=== PATIENT | male | born 1980 | race Caucasian/White ===

== ENCOUNTER 2018-02-12 04:50 | Emergency (ER) | payer BC, OTHER ==
[~2018-02-12] VITALS: Ht 177.8 cm; Wt 101.1 kg
[~2018-02-12 04:50] MED LIST: ALBU18HF2 IH; NO HOME MEDS; PRED20TA PO
[2018-02-12 04:54] VITALS: BP 136/94
[2018-02-12] MEDS ORDERED: ketorolac trometh inj. 60 MG/2 ML VIAL IM ONE (05:15)
[2018-02-12] MEDS ORDERED: acetaminophen 325mg tablet PO ONE (05:15)
== END 2018-02-12 05:33 | disposition home or self-care (01) ==
LOC: ER 04:50
DX: R07.89 Other chest pain (principal); Z79.899 Other long term (current) drug therapy
CPT/HCPCS: 93005; 96372; 99283; J1885